=== PATIENT | female | born 1955 | race Caucasian/White ===

== ENCOUNTER 2023-10-13 16:14 | Emergency (ER) | payer MEDICARE ==
[~2023-10-13] VITALS: Ht 154.9 cm; Wt 118.2 kg
[~2023-10-13 16:14] MED LIST: ABILIFY2 MG PO; AMBIEN 5MG TABLE5 MG PO; ASPIRIN 32325 MG/TAB PO; BACTROBAN 22GM22 GM; BROVANA15 MCG/2 M; BUSPAR10 MG PO; CARAFATE 1GM1 G PO; CARDIZEM120 MG PO; CLARITIN 1010 MG/TAB PO; CPAP; CYMBALTA 30MG30 MG PO; CYMBALTA 60MG60 MG PO; DALIRESP500 MCG PO; DESYREL 100MG100 MG PO; DESYREL 50MG50 MG PO; GLYCOLAX17 GM/PACK PO; LASIX 40MG TABL40 MG PO; LEVOXYL0.175 MG PO; LIPITOR20 MG PO; LORTAB ELIX0.5 MG/ML PO; MAXALT10 MG; METAMUCIL1 PDR PO; MIRAPEX0.5 MG PO; NEURONTIN300 MG/CAP PO; ONE DAILY ESSE0.5 M1 PO; ORUDIS PO; PAMELOR 25MG25 MG PO; PREVACID 30MG30 M1 PO; PRIL40; PRIL40 PO; PROTONIX 40MG T40 MG PO; PULMICORT0.5 MG/2 M IH; REQUIP 1MG T1 MG/TAB PO; RT ADVAIR 528 DISKUS IH; RT SPIRIVA18 MCG IH; SYNTHROID0.088 MG/T PO; SYNTHROID0.1 MG/TAB PO; SYNTHROID0.125 MG/T PO; TOPAMAX 25MG25 M1 PO; TOPROL XL 25MG25 MG PO; ULTRAM 50MG TAB50 MG PO; VIT B12 PO; VITAMIN B125000 MCG PO; VOLTAREN GEL 1%1 TU TP; WELCHOL 625MG625 MG PO; XOPENEX 1.1.25 MG/3 IH; ZANTAC 150MG T150 MG PO; ZOFRAN8 MG PO
[2023-10-13 16:30] VITALS: TEMP 98
[2023-10-13 17:45] VITALS: BP 113/85; PULSE 134
== END 2023-10-13 17:48 | disposition home or self-care (01) ==
LOC: COL.ER 16:14
DX: R51.9 Headache, unspecified (principal); Z87.891 Personal history of nicotine dependence